=== PATIENT | female | born 1945 | race Caucasian/White ===

== ENCOUNTER → 2016-10-14 | Day surgery (SDC) | payer MEDICARE, BC ==
[~2016-10-14] MED LIST: ALIGN4 MG PO; AMARYL PO; AMLODIPINE BESY10 MG PO; CRESTOR5 MG PO; FISH OIL 1,0001 CAP; HYDROCODON-ACE1 EAC7 PO; JANUVIA PO; KLONOPIN PO; LISINOPRIL-HCTZ1 T14 PO; METFORMIN PO; OMEPRAZOLE40 M1 PO; PHILLIPS' COLO1 EACH PO; PROZAC40 MG PO; ROBINUL1 M1 PO; SYMBYAX PO; TYLENOL #3 PO; VITAMIN D31000 UNIT PO; ZANTAC150 M1 PO; ZOLPIDEM TARTRA10 M1 PO
--- NOTE | ~2016-10-14 | ECT ---
Unit #: [id number] #: [id number] Patient: ARNOLD KELLY [id number] [address] [address] [id number] O MR#: [id number] NAME: ARNOLD KELLY ROOM: Age: 71 Sex: F Admission Date: 10/14/2016 : 1945 Discharge Date: Attending Physician: Griffin Gay M.D. Primary Care Physician: Ryan Toussaint M.D. ECT NOTE DATE OF TREATMENT 10/14/2016 TREATMENT NUMBER Six TREATMENT MODALITY Unilateral ECT. ANESTHESIA Glycopyrrolate: 0.2 mg Brevital: 130 mg Succinylcholine: 100 mg TREATMENT PARAMETERS Charge: 576 millicoulombs Pulse Width: 1.0 milliseconds Frequency: 60 Hertz Duration: 6 seconds Current: 800 milliamps TREATMENT DELIVERED Energy: 138.6 joules Impedance: 289 ohms Charge: 576 millicoulombs SEIZURE MEASURES OMS: 13 seconds EE seconds COMPLICATIONS None. SUMMARY The patient had a good seizure with her EEG measures, the depression hasn't really changed that much. She has been complaining about a lot of anxiety and panic symptoms, and chronic headache. No other issues or complaints noted. I will continue her ECT treatments on Friday. DIFFERENTIAL DIAGNOSES AXIS I: F33.2. AXIS II: Deferred. AXIS III: Nothing acute. Unit #: [id number] #: [id number] Patient: ARNOLD KELLY AXIS IV: AXIS V: Dictated by... Srinivas Goldberg/sherri TD: 10/15/2016 10:47 JOB #: [id number] ECT NOTE X Griffin Gay MD <ELECTRONICALLY SIGNED> 04/22/17 1702 X ECT
== END | disposition home or self-care (01) ==
LOC: CSUR 07:39
DX: F33.2 Major depressive disorder, recurrent severe without psychotic features (principal); I10 Essential (primary) hypertension; E11.9 Type 2 diabetes mellitus without complications; Z79.84 Long term (current) use of oral hypoglycemic drugs; E78.5 Hyperlipidemia, unspecified; K21.9 Gastro-esophageal reflux disease without esophagitis; R01.1 Cardiac murmur, unspecified; R59.9 Enlarged lymph nodes, unspecified; K58.9 Irritable bowel syndrome, unspecified; E55.9 Vitamin D deficiency, unspecified; G47.00 Insomnia, unspecified; Z79.899 Other long term (current) drug therapy; Z90.710 Acquired absence of both cervix and uterus; Z85.528 Personal history of other malignant neoplasm of kidney; Z90.49 Acquired absence of other specified parts of digestive tract
CPT/HCPCS: 82947; 90870; J0330; J1885

== ENCOUNTER → 2016-10-25 | Day surgery (SDC) | payer MEDICARE, BC ==
--- NOTE | ~2016-10-25 | ECT ---
Unit #: [id number] #: [id number] Patient: ARNOLD KELLY [id number] [address] [address] [id number] O MR#: [id number] NAME: ARNOLD KELLY ROOM: Age: 71 Sex: F Admission Date: 10/25/2016 : 1945 Discharge Date: Attending Physician: Griffin Gay M.D. Primary Care Physician: Ryan Toussaint M.D. ECT NOTE DATE OF TREATMENT 10/25/2016 TREATMENT NUMBER 10 TREATMENT MODALITY Unilateral ECT ANESTHESIA Glycopyrrolate: 0.2 mg Brevital: 130 mg Succinylcholine: 100 mg TREATMENT PARAMETERS Charge: 576 millicoulombs Pulse Width: 1.0 milliseconds Frequency: 60 Hertz Duration: 6 seconds Current: 800 milliamps TREATMENT DELIVERED Energy: 133.8 joules Impedance: 280 ohms Charge: 576 millicoulombs SEIZURE MEASURES OMS: 14 seconds EE seconds COMPLICATIONS None. SUMMARY The patient had a good seizure with OMS and EEG measures. Depression has not really changed significantly from her ECT treatment. She just continues to complain about her chronic headaches, although her affect does seem to be brighter on presentation. I will conclude her ECT treatments today and will just kind of watch and see how she does over the next few weeks. DIFFERENTIAL DIAGNOSES AXIS I: F33.2. AXIS II: Deferred. Unit #: [id number] #: [id number] Patient: ARNOLD KELLY AXIS III: Nothing acute. Dictated by... Griffin Gay M.D. REGGIE/macario TD: 10/25/2016 17:27 JOB #: [id number] ECT NOTE X Griffin Gay MD <ELECTRONICALLY SIGNED> 04/22/17 1702 X ECT
== END | disposition home or self-care (01) ==
LOC: CSUR 06:45
DX: F33.2 Major depressive disorder, recurrent severe without psychotic features (principal); E11.9 Type 2 diabetes mellitus without complications; Z79.84 Long term (current) use of oral hypoglycemic drugs; I10 Essential (primary) hypertension; K21.9 Gastro-esophageal reflux disease without esophagitis; E78.5 Hyperlipidemia, unspecified; G47.00 Insomnia, unspecified; E55.9 Vitamin D deficiency, unspecified; R01.1 Cardiac murmur, unspecified; K58.9 Irritable bowel syndrome, unspecified; Z79.899 Other long term (current) drug therapy; Z85.53 Personal history of malignant neoplasm of renal pelvis; Z87.442 Personal history of urinary calculi; Z90.49 Acquired absence of other specified parts of digestive tract; Z90.710 Acquired absence of both cervix and uterus; Z98.890 Other specified postprocedural states
CPT/HCPCS: 82947; 90870; J0330; J1885